=== PATIENT | male | born 1990 | race Caucasian/White ===

== ENCOUNTER 2018-07-13 06:52 | Emergency (ER) | payer BC, OTHER ==
[~2018-07-13] VITALS: Ht 177.8 cm; Wt 72.6 kg
[2018-07-13] MEDS ORDERED: IV NORMAL SALINE 1,000ML 1,000 ML IV ONE ×4 (07:00→09:30)
[2018-07-13] MEDS ORDERED: ONDANSETRON PF 4 MG/2 ML VIAL. ONE (07:32)
--- NOTE | 2018-07-13 07:40 | EKG ---
[address] [address] Test Date: 2018-07-13 Test Time: 06:57:32 Pat Name: NAKITA ROBERTSON Department: Room: Gender: M Criminal Justice Lawyer: : 1990 Requested By: NIKOLAS CHRISTOPHER Order Number: [id number] Reading MD: Michael Douglas MD Measurements Intervals [employer] Rate: 122 P: 73 IA: 130 QRS: 63 QRSD: 80 T: 73 QT: 304 QTc: 434 Interpretive Statements SINUS TACHYCARDIA Electronically Signed On 07-17-2018 13:10:24 CDT by Michael Douglas MD
[2018-07-13 07:41] LABS: BASO # 0.1 x10^3/uL (0.0-0.2); BASO % 1 % (0-3); EOS % 0 % (0-3); HEMATOCRIT 34.1 % (39.0-53.0); HEMOGLOBIN 11.5 g/dL (13.0-17.5); LYMPH # 2.7 x10^3/uL (1.0-4.8); LYMPH % 11 % (24-48); MEAN CORPUSCULAR HEMOGLOBIN 31 pg (25-35); MEAN CORPUSCULAR HGB CONC 34 g/dL (31-37); MEAN CORPUSCULAR VOLUME 92 fL (79-100); MONO # 2.2 x10^3/uL (0.0-1.1); MONO % 9 % (0-9); NEUT # 20.3 x10^3uL (1.8-7.7); NEUT % 80 % (31-73); PLATELET COUNT 173 x10^3/uL (140-400); RED BLOOD COUNT 3.71 x10^6/uL (4.30-5.70); RED CELL DISTRIBUTION WIDTH 12.5 % (11.5-14.5); WHITE BLOOD COUNT 25.3 x10^3/uL (4.0-11.0)
[2018-07-13] MEDS ORDERED: ONDANSETRON PF 4 MG/2 ML VIAL. IV ONE (07:45)
[2018-07-13] MEDS ORDERED: DIPHTH,PERTUSS(ACELL),TET TOX 0.5 ML DISP.SYRIN. VAX IM ONE (07:45)
[2018-07-13] MEDS ORDERED: LIDOCAINE 1% Multi-Dose 20 ML VIAL. IJ ONE (08:00)
[2018-07-13 08:01] LABS: ALBUMIN 3.5 g/dL (3.4-5.0); ALBUMIN/GLOBULIN RATIO 1.6 (1.0-1.7); CALCIUM 8.1 mg/dL (8.5-10.1); CREATININE 1.9 mg/dL (0.7-1.3); GFR 42.7; POTASSIUM 4.2 mmol/L (3.5-5.1); TOTAL BILIRUBIN 0.7 mg/dL (0.2-1.0); TOTAL PROTEIN 5.7 g/dL (6.4-8.2)
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
--- NOTE | 2018-07-13 09:02 | RAD ---
Indication:injury last night TECHNIQUE: 3 views of the right ankle COMPARISON:None FINDINGS/ impression: No acute fracture or dislocation. Indication:injury last night TECHNIQUE:Portable AP chest X-ray COMPARISON:None FINDINGS: Heart is normal in size. Lungs are clear. No pneumothorax or pleural effusion. Visualized bony thorax within normal limits. IMPRESSION: No acute pulmonary process. INDICATION: Right big toe pain status post injury. TECHNIQUE: 3 views of the right great toe COMPARISON: None FINDINGS/impression: No acute fracture or dislocation. Electronically signed by: Micha Wilhelm DO (07/13/2018 8:59 AM) [facility]
[2018-07-13 09:13] LABS: % BANDS 11 % (0-9); % LYMPHS 10 % (24-48); % METAS 1 % (0-0); % MONOS 5 % (0-10); % SEGS 73 % (35-66)
[2018-07-13 09:14] LABS: PLT ESTIMATE ADEQUATE (ADEQUATE)
[2018-07-13 09:15] LABS: TOXIC VACUOLATION PRESENT
[2018-07-13 09:36] LABS: BASO # 0.1 x10^3/uL (0.0-0.2); BASO % 1 % (0-3); EOS % 0 % (0-3); HEMATOCRIT 34.3 % (39.0-53.0); HEMOGLOBIN 11.6 g/dL (13.0-17.5); LYMPH # 2.5 x10^3/uL (1.0-4.8); LYMPH % 11 % (24-48); MEAN CORPUSCULAR HEMOGLOBIN 31 pg (25-35); MEAN CORPUSCULAR HGB CONC 34 g/dL (31-37); MEAN CORPUSCULAR VOLUME 92 fL (79-100); MONO # 1.9 x10^3/uL (0.0-1.1); MONO % 8 % (0-9); NEUT # 18.7 x10^3uL (1.8-7.7); NEUT % 80 % (31-73); PLATELET COUNT 190 x10^3/uL (140-400); RED BLOOD COUNT 3.73 x10^6/uL (4.30-5.70); RED CELL DISTRIBUTION WIDTH 12.5 % (11.5-14.5); WHITE BLOOD COUNT 23.2 x10^3/uL (4.0-11.0)
[2018-07-13] MEDS ORDERED: IV NORMAL SALINE 50ML 50 ML ONE (09:55)
[2018-07-13] MEDS ORDERED: cefTRIAXone SODIUM 1 GM VIAL ONE (09:55)
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
[2018-07-13 12:20] LABS: AMPHETAMINE/METHAMPHETAMINE POS (NEG); BARBITURATES NEG (NEG); BENZODIAZEPINES NEG (NEG); CANNABINOIDS NEG (NEG); COCAINE NEG (NEG); METHADONE NEG (NEG); OPIATES NEG (NEG); PHENCYCLIDINE NEG (NEG)
[2018-07-13 14:00] VITALS: BP 124/53
[2018-07-13 14:30] LABS: BASO # 0.1 x10^3/uL (0.0-0.2); BASO % 0 % (0-3); EOS % 0 % (0-3); HEMATOCRIT 28.5 % (39.0-53.0); HEMOGLOBIN 9.8 g/dL (13.0-17.5); LYMPH # 2.8 x10^3/uL (1.0-4.8); LYMPH % 18 % (24-48); MEAN CORPUSCULAR HEMOGLOBIN 31 pg (25-35); MEAN CORPUSCULAR HGB CONC 34 g/dL (31-37); MEAN CORPUSCULAR VOLUME 91 fL (79-100); MONO # 1.7 x10^3/uL (0.0-1.1); MONO % 11 % (0-9); NEUT # 10.8 x10^3uL (1.8-7.7); NEUT % 70 % (31-73); PLATELET COUNT 171 x10^3/uL (140-400); RED BLOOD COUNT 3.14 x10^6/uL (4.30-5.70); RED CELL DISTRIBUTION WIDTH 12.6 % (11.5-14.5); WHITE BLOOD COUNT 15.4 x10^3/uL (4.0-11.0)
[2018-07-14 10:05] LABS: TOXIC GRANULATION PRESENT
== END 2018-07-13 14:40 | disposition other institution (70) ==
LOC: ER 06:52 → EEVIPCON 06:52 → UNDOADMIN 08:08 → ICU 08:08 → ER 14:40
DX: S61.412A Laceration without foreign body of left hand, initial encounter (principal); A41.9 Sepsis, unspecified organism; R65.20 Severe sepsis without septic shock; S51.812A Laceration without foreign body of left forearm, initial encounter; S41.111A Laceration without foreign body of right upper arm, initial encounter; S90.32XA Contusion of left foot, initial encounter; S90.31XA Contusion of right foot, initial encounter; S70.11XA Contusion of right thigh, initial encounter; S20.221A Contusion of right back wall of thorax, initial encounter; S20.222A Contusion of left back wall of thorax, initial encounter; N28.9 Disorder of kidney and ureter, unspecified; I95.89 Other hypotension; E86.1 Hypovolemia; F15.10 Other stimulant abuse, uncomplicated; F10.10 Alcohol abuse, uncomplicated; D64.9 Anemia, unspecified; F41.9 Anxiety disorder, unspecified; G43.909 Migraine, unspecified, not intractable, without status migrainosus; F17.210 Nicotine dependence, cigarettes, uncomplicated; Y90.2 Blood alcohol level of 40-59 mg/100 ml; V47.5XXA Car driver injured in collision with fixed or stationary object in traffic accident, initial encounter; Y93.I9 Activity, other involving external motion; Y92.488 Other paved roadways as the place of occurrence of the external cause; X78.8XXA Intentional self-harm by other sharp object, initial encounter; Y93.89 Activity, other specified; Y92.89 Other specified places as the place of occurrence of the external cause; Y99.8 Other external cause status
CPT/HCPCS: 12005; 36415; 70450; 71045; 72125; 73610; 73660; 76881; 80053; 80307; 83605; 85007; 85025; 85610; 85730; 86850; 86900; 86901; 87040; 90471; 90715; 93005; 96361; 96365; 96375; 99291; 99292; G0480; J0696; J2405; J3010; 96372; J7030